=== PATIENT | female | born 1950 | race Caucasian/White ===

== ENCOUNTER 2023-05-21 09:29 | Outpatient (CLI) | payer MEDICARE ==
[~2023-05-21] VITALS: Ht 167.6 cm; Wt 74.4 kg
[2023-05-21] VITALS (9 sets, daily range): BP systolic 120–152; BP diastolic 71–91; PULSE 70–93; TEMP 97.5
[~2023-05-21 09:29] MED LIST: ASPIR-LOW81 MG PO; LORTAB 5/500 501 TAB PO; NO HOME MEDICATIONS; PEPCID 20MG TAB20 MG PO; PERCOCET 5/321 UDTAB PO
[2023-05-21] MEDS ORDERED: CRESTOR 10MG10 MG PO (10:38)
[2023-05-21] MEDS ORDERED: DESYREL 50MG50 MG PO (10:39)
[2023-05-21] MEDS ORDERED: LR 1,000 ML IV SCH (11:00)
--- NOTE | 2023-05-21 11:28 | NUR ---
Refer to [facility] report for procedural sedation/notes
[2023-05-21] MEDS ORDERED: fentaNYL 50 MCG/ML 2 ML VIAL IV SCH (11:46)
[2023-05-21] MEDS ORDERED: Midazolam 2 MG/2 ML VIAL IV SCH (11:46)
--- NOTE | 2023-05-21 12:08 | NUR ---
Pt back to [facility] - bedside handoff performed with Nati Zamarripa RN - vitals and access sites reviewed and stable - pt denies pain or needs at this time - call light in reach.
--- NOTE | 2023-05-21 12:10 | NUR ---
PT ARRIVED FROM [facility]EMODIAL[facility] VIA BED, IS AWAKE, FRIEND IN ROOM. STATES IS FEELING "BETTER", NO PAIN TO BACK BEFORE, PT RESTS SUPINE, CALL LIGHT IN REACH, SIPS ON WATER
--- NOTE | 2023-05-21 13:15 | NUR ---
WHILE NURSE IN ROOM, PT HAD 2 LARGE SNEEZES IN SUCCESSION AND SHOOK HER IN THE BED, AFTERWARDS PT C/O INCREASE IN PAIN TO BACK, STATES i THINK I "ALCON BY BACK WHEN I SNEEZED" STATES PAIN TO BACK IS MUCH WORSE, MOANS AND UNABLE TO GET COMFORTABLE NOW,
--- NOTE | 2023-05-21 13:30 | NUR ---
DR HAYWOOD NOTIFIED OF PT HAVING INCREASE BACK PAIN TO SITES AFTER SNEEZING BIG X2, AND IS MOANING STATES "IT REALLY HURTS NOW", NEW ORDER RECIEVED, NORCO 5MG PO GIVEN 2 TABS ORDERED AT 1345, PT DOES TAKE LIGHT LUNCH WITH HELP OF FRIEND IN ROOM
--- NOTE | 2023-05-21 14:15 | NUR ---
PT STATES STILL FEELS THE SAME, AT 1440 PT RESTING, SLEEPING WITH EYES CLOSED, FRIEND STATES SHE HAS BEEN SLEEPING AND IS MORE COMFORTABLE, WILL CON'T TO MONITOR
--- NOTE | 2023-05-21 15:00 | NUR ---
PT MORE ALERT, AWAKE, SITS ON SIDE OF BED, TOLERATES WELL, WALKED TO B/R WITH STANDBY ASSIST AND BOOT ON, STATES FEELS BETTER, ONLY HAVING MILD DISCOMFORT, BUT BETTER WHEN WHE CAME IN . IV D'CD INTACT. REVIEWED DISCHARGE IN ST. WITH PT ON CARE OF SITE, FOLLOWUP WITH OWN DR, MODERATE SEDATION INST. ALSO REVIEWED. PT DISCHARGED AT 1530 VIA W/C WITH FRIEND TO CAR
== END 2023-05-21 15:30 | disposition home or self-care (01) ==
LOC: COL.CAR 09:29
DX: S32.020A Wedge compression fracture of second lumbar vertebra, initial encounter for closed fracture (principal); S82.55XA Nondisplaced fracture of medial malleolus of left tibia, initial encounter for closed fracture; S39.012A Strain of muscle, fascia and tendon of lower back, initial encounter; S99.912A Unspecified injury of left ankle, initial encounter; M54.9 Dorsalgia, unspecified; M25.572 Pain in left ankle and joints of left foot; W18.2XXA Fall in (into) shower or empty bathtub, initial encounter
CPT/HCPCS: C1713; J0665-JZ; J2250; J3010

== ENCOUNTER 2023-07-17 13:33 | Outpatient (CLI) | payer MEDICARE ==
[~2023-07-17] VITALS: Ht 167.6 cm; Wt 75.1 kg
[~2023-07-17 13:33] MED LIST changes: +CRESTOR 10MG10 MG PO; +DESYREL 50MG50 MG PO
[2023-07-17] MEDS ORDERED: Romosozumab-aqqg 210 MG/2.34 ML 2-Syringe KIT SQ ONE (13:45)
[2023-07-17 14:01] VITALS: BP 137/84; PULSE 76; TEMP 98
[2023-07-17] MEDS ORDERED: ASPIRIN E.C. 8181 MG PO (14:34)
[2023-07-17] MEDS ORDERED: MOTRIN 200200 MG/TAB PO (14:35)
[2023-07-17] MEDS ORDERED: VITAMIN D31000 I1 PO (14:36)
[2023-07-17] MEDS ORDERED: VITAMIN B-6100 MG (14:36)
[2023-07-17] MEDS ORDERED: VITAMIN B12 1541 TAB PO (14:37)
[2023-07-17] MEDS ORDERED: ZANAFLEX CAPSULE4 MG PO (14:38)
== END 2023-07-17 14:40 | disposition home or self-care (01) ==
LOC: EUO 13:33
DX: M81.0 Age-related osteoporosis without current pathological fracture (principal)
CPT/HCPCS: J3111

== ENCOUNTER 2023-09-16 13:59 | Outpatient (RCR) | payer MEDICARE ==
[~2023-09-16] VITALS: Ht 167.6 cm; Wt 73.4 kg
[~2023-09-16 13:59] MED LIST changes: +ASPIRIN E.C. 8181 MG PO; +MOTRIN 200200 MG/TAB PO; +VITAMIN B-6100 MG; +VITAMIN B12 1541 TAB PO; +VITAMIN D31000 I1 PO; +ZANAFLEX CAPSULE4 MG PO
[2023-09-16] MEDS ORDERED: Romosozumab-aqqg 210 MG/2.34 ML 2-Syringe KIT SQ ONE (14:15)
[2023-09-16] MEDS ORDERED: EVENITY (2210 MG/2.3 SQ (14:42)
[2023-09-16 14:50] VITALS: BP 106/78; PULSE 79; TEMP 98.5
[2023-10-14] MEDS ORDERED: PROAIR HFA0.09 MG/AC IH (14:30)
[2023-10-14] MEDS ORDERED: ADVIL200 MG PO (14:33)
== END 2023-09-16 14:51 | disposition home or self-care (01) ==
LOC: EUO 13:59
DX: M81.0 Age-related osteoporosis without current pathological fracture (principal)
CPT/HCPCS: J3111

== ENCOUNTER 2024-01-06 13:59 | Outpatient (CLI) | payer MEDICARE ==
[~2024-01-06] VITALS: Ht 167.6 cm; Wt 76.5 kg
[~2024-01-06 13:59] MED LIST changes: +ADVIL200 MG PO; +EVENITY (2210 MG/2.3 SQ; +PROAIR HFA0.09 MG/AC IH
[2024-01-06 14:11] VITALS: BP 128/72; PULSE 74; TEMP 97.6
[2024-01-06] MEDS ORDERED: Romosozumab-aqqg 210 MG/2.34 ML 2-Syringe KIT SQ ONE (14:15)
[2024-01-06] MEDS ORDERED: VITAMIN B12 781 TAB (14:17)
[2024-01-06] MEDS ORDERED: VITAMIN B-610 MG (14:17)
== END 2024-01-06 14:24 | disposition home or self-care (01) ==
LOC: EUO 13:59
DX: M81.0 Age-related osteoporosis without current pathological fracture (principal)
CPT/HCPCS: J3111